=== PATIENT | male | born 1965 | race Caucasian/White ===

== ENCOUNTER → 2016-07-31 | Outpatient (CLI) | payer OTHER ==
[~2016-07-31] MED LIST: ALPRAZOLAM PO; CHANTIX1 DOSE-PAC PO; NORVASC PO; NORVASC10 MG PO; OXYCODON HCL-1 UDTAB PO; PRINIVIL40 MG PO; RANITIDINE HCL150 M1 PO; TOPROL XL50 MG PO; TRAMADOL HCL50 M2 PO; ZANTAC150 M1 PO
--- NOTE | ~2016-07-31 | EKG ---
PATIENT: LAKEISHA MAHERER UNIT #: [id number] Ventricular Rate: 68 BPM Atrial Rate: 68 BPM P-R Interval: 128 ms QRS Duration: 104 ms Q-T Interval: 386 ms QTC Calculation(Bezet): 410 ms P [place]: 45 degrees Calculated R [place]: -33 degrees Calculated T [place]: 47 degrees Diagnosis Line: Normal sinus rhythm Diagnosis Line: Left axis deviation Diagnosis Line: Cannot rule out Septal infarct , age undetermined Diagnosis Line: likely lead positioning. Diagnosis Line: Abnormal ECG Diagnosis Line: No previous ECGs available Diagnosis Line: Confirmed by GARRY STALLINGS MD ([id number]) on 08/01/2016 Diagnosis Line: 6:19:01 PM INTERPRETING MD: HAYLIE MYERS
[2016-07-31 12:15] LABS: HEMATOCRIT 43.7 % (38.0-50.0); HEMOGLOBIN 14.9 gm/dL (13.0-16.0); MEAN CELL VOLUME 89.3 FL (83-96); MEAN CORPUSCULAR HEMOGLOBIN 30.4 PG (28-34); MEAN CORPUSCULAR HGB CONC 34.1 g/dL (30-36); MEAN PLATELET VOLUME 9.1 FL (6.5-11.5); RED BLOOD COUNT 4.9 X10e (3.90-5.60)
[2016-07-31 12:40] LABS: BLOOD UREA NITROGEN 9 mg/dL (9-23); CALCIUM SERUM 9.3 mg/dL (8.4-10.2); CARBON DIOXIDE 27 mmol/L (22-31); CHLORIDE 104 mmol/L (100-111); CREATININE SERUM 0.9 mg/dL (0.6-1.4); GLOM FILT RATE Estimated ABOVE60 mL/min (>60); GLUCOSE FASTING 94 mg/dL (70-110); POTASSIUM 3.9 mmol/L (3.5-5.1); SODIUM 137 mmol/L (135-145)
== END | disposition home or self-care (01) ==
LOC: CAMB 10:23
PROVIDERS: Orthopaedic Surgery
DX: Z01.818 Encounter for other preprocedural examination (principal); R94.31 Abnormal electrocardiogram [ECG] [EKG]
CPT/HCPCS: 36415; 80048; 85027; 93005

== ENCOUNTER → 2016-08-06 | Day surgery (SDC) | payer OTHER ==
--- NOTE | ~2016-08-06 | OR ---
Unit #: [id number] #: [id number] Patient: GITA FLOWERS JR [id number] [address] [id number] MR#: [id number] NAME: GITA FLOWERS JR ROOM: Date of Procedure: 08/06/2016 Admission Date: 08/06/2016 Surgeon: Donn Quiles M.D. : 1965 Attending Physician: Donn Quiles M.D. Referring Physician: Donn Quiles M.D. Primary Care Physician: Carson Jimenez M.D. OPERATIVE REPORT PREOPERATIVE DIAGNOSES 1. Right shoulder supraspinatus rotator cuff tear. 2. 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 POSTOPERATIVE DIAGNOSES 1. Right shoulder supraspinatus rotator cuff tear. 2. 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 PROCEDURES PERFORMED 1. Right shoulder arthroscopic rotator cuff repair, 07787. 2. Right shoulder arthroscopic limited debridement of labrum, 31446. HOISTMAN Zain Kern CFA. ANESTHESIA General endotracheal. COMPLICATIONS None. SPECIMENS None. DRAINS None. SURGICAL IMPLANTS 1. Single 4.5 mm knotless PEEK suture anchor, . 2. Single #2 MaxBraid suture. INDICATION FOR PROCEDURE Mr. Flowers is a pleasant 51-year-old male, who presented to my office with persistent right shoulder pain. He had an MRI that confirmed a full-thickness rotator cuff tear. This was of the supraspinatus. Based on clinical exam and MRI findings and age, it was felt he would benefit from surgical repair. Risks, benefits, and alternatives of surgery were discussed with the patient. Informed consent was obtained. He wished to proceed with this elective procedure. Risks include, but not limited to, infection, bleeding, nerve injury, blood clots, risks associated with anesthesia, need for further surgery, and possibly . Unit #: [id number] #: [id number] Patient: GITA FLOWERS JR DESCRIPTION OF PROCEDURE On 08/06/2016, the patient was seen in the preoperative holding area, where his surgical site was marked. Preoperative antibiotics were received. H and P and consent updated. He was taken to the operating room and provided general anesthesia. He was moved into the beach chair position. All bony prominences were well padded and cervical spine kept in the midline neutral position at all times. Right upper extremity was prepped and draped in typical sterile fashion. Time-out performed confirming the correct surgical site and procedure. At this point, a standard posterior portal was created with an 11-blade. A blunt trocar carefully inserted into the glenohumeral joint. Next, an 18-gauge needle was used to localize for an anterior portal. This was placed through the rotator interval. Full inventory of the shoulder was performed. No significant rotator cuff tear noted on the articular side. The biceps was intact. Articular cartilage normal. There was undersurface degenerative type superior labral tear. Arthroscopic shaver was used to debride this back to a stable base. Images confirmed this. Once the labrum debridement was completed, the arthroscope was placed in the subacromial space. A thorough bursectomy was performed. A direct lateral portal was created. The anterior supraspinatus tear site was identified. It was near full-thickness. Shaver was used to debride the tuberosity base. Once this was decorticated to stimulate bleeding, suture passer was used to pass through the rotator cuff tissue. A #2 MaxBraid suture was shuttled through the rotator cuff. It was then docked into a knotless lateral row anchor. A lateral row anchor was then placed and the suture was tensioned down reducing the cuff to the tuberosity. Once this was complete, the sutures were cut flush with the anchor. Final images were taken. The scope was placed back into the glenohumeral joint to confirm the repair was appropriate and the biceps tendon was not tethered. Instruments were then removed from the shoulder. The portal wounds were closed with 3-0 nylon suture. Xeroform, 4x4s, ABD pad, and tape were placed. A sling immobilizer was placed. The patient was taken to PACU postoperatively in stable condition. POSTOPERATIVE PLAN The patient will be discharged home. He will follow up in the office 10 to 14 days. Do pendulums and elbow motion 4 to 5 times a day. No complications encountered during the surgical procedure. Dictated by... Donn Quiles M.D. LUIS/robles TD: 08/07/2016 07:56 JOB #: [id number] OPERATIVE REPORT X X PROCEDURE OPERATIVE NOTE
[2016-08-06 09:41] LABS: HEMATOCRIT 43.6 % (38.0-50.0); HEMOGLOBIN 14.8 gm/dL (13.0-16.0); MEAN CORPUSCULAR HEMOGLOBIN 29.9 PG (28-34); MEAN PLATELET VOLUME 8.6 FL (6.5-11.5); RED BLOOD COUNT 4.96 X10e (3.90-5.60); RED CELL DISTRIBUTION WIDTH 12.9 % (11.0-15.5); WHITE BLOOD COUNT 13.3 X10e3 (4.0-10.5)
== END | disposition home or self-care (01) ==
LOC: CSUR 09:05
PROVIDERS: Orthopaedic Surgery
DX: M75.121 Complete rotator cuff tear or rupture of right shoulder, not specified as traumatic (principal); S43.431A Superior glenoid labrum lesion of right shoulder, initial encounter; K21.9 Gastro-esophageal reflux disease without esophagitis; I10 Essential (primary) hypertension; J44.9 Chronic obstructive pulmonary disease, unspecified; F17.200 Nicotine dependence, unspecified, uncomplicated
CPT/HCPCS: 85027; C1713; J0171; J0690; J1100; J1885; J2270; J2405; J3010